=== PATIENT | male | born 1940 | race Caucasian/White ===

== ENCOUNTER 2016-10-30 10:36 | Emergency (ER) | payer OTHER ==
[~2016-10-30] VITALS: Ht 172.7 cm; Wt 77.9 kg
[~2016-10-30 10:36] MED LIST: AVDUNK; CEPH500C PO; CPR500 PO; FLM4 PO; LPTUNK; MULT-506 PO; OXYC-57 PO
[2016-10-30 10:43] VITALS: Ht 172.7 cm; Wt 77.9 kg
[2016-10-30 10:48] VITALS: O2SAT 99
[2016-10-30] MEDS ORDERED: SODIUM CHLORIDE 0.9% 250ML 250 ML IV STA (12:05)
[2016-10-30] MEDS ORDERED: SODIUM CHLORIDE 0.9% 1000ML 1,000 ML IV STA (12:05)
[2016-10-30 12:16] LABS: BASO % 0.6 %; BASO ABS # 0.04 K/uL (0-0.2); COMPLETE YES; EOS % 0.2 %; HEMATOCRIT 42.7 % (42-52); IG% 0.2 %; LYMPH % 29.9 %; LYMPH ABS # 1.86 K/uL (1.2-3.4); MEAN CELL VOLUME 89.3 fL (80-100); MEAN CORPUSCULAR HEMOGLOBIN 31.4 pg (25-34); MEAN CORPUSCULAR HGB CONC 35.1 g/dl (32-36); MEAN PLATELET VOLUME 9.8 fL (7.4-10.4); MONO % 25.4 %; NEUT % 43.7 %; PLATELET COUNT 218 K/uL (130-400); RED BLOOD COUNT 4.78 M/uL (4.7-6.1); WHITE BLOOD COUNT 6.22 K/uL (4.8-10.8)
[2016-10-30] MEDS ORDERED: ZOLP10TA PO (12:19)
[2016-10-30] MEDS ORDERED: CHOL1000 PO (12:19)
[2016-10-30] MEDS ORDERED: ROSU20TA PO (12:19)
--- NOTE | 2016-10-30 12:22 | EMERGENCY ROOM VISIT NOTE ---
History Report prepared by Umu: Elsie Orlando Under the Supervision of: Dr. Ciarra Chambers M.D. First contact with patient: 11:40 Chief Complaint: SYNCOPE Stated Complaint: SYNCOPE Nursing Triage Summary: pt was here with spouse in a1 was walking to bathroom and had syncopal episode. placed in bed and put in room ekg and iv established. pt reports he has been feeling ill since saturday and son asked himto come to hospital today with . pt reports cough and started having yellow flem today. feels achy all over and back pain History of Present Illness The patient is a 76 year old male who presents to the Emergency Room with complaints of an episode of near syncope that occurred this morning. The patient states that he has been ill over the past 3 days with body aches, fatigue, headache, chills, hot sweats, and a cough. He notes that he has been in bed since Saturday not feeling well. Today, he developed diarrhea. This morning he was in the emergency room accompanying his who was a patient and felt like he needed to find the restroom to have a bowel movement. A nurse was helping him with directions to the bathroom when he became disoriented and collapsed. He states that she caught him and he did not hit his head. He has never had similar symptoms in the past. The patient notes that he has been keeping up with fluids over the past few days. He had a flu shot this year. Denies bloody stool, urinary symptoms, focal weakness, or other complaints. He has had sick contacts with diarrhea recently. Source of History: patient Onset: this morning Position: other (global) Quality: other (near syncope) Timing: other (episode) Associated Symptoms: + chills, + cough, + diarrhea, + headache, No urinary symptoms, No weakness Note: Other symptoms: body aches, sweats Review of Systems See HPI for pertinent positives & negatives. A total of 10 systems reviewed and were otherwise negative. Past Medical & Surgical Medical Problems: (1) High cholesterol Family History Heart disease Social History Smoking Status: Never Smoker Marital Status: Housing Status: lives with significant other Occupation Status: retired Current/Historical Medications Scheduled Cholecalciferol (Vitamin D3), 1 TAB PO DAILY Multivitamin (Multivitamin), 1 TAB PO DAILY Oseltamivir Phosphate (Tamiflu), 5 ML PO BID Rosuvastatin Calcium (Crestor), 20 MG PO DAILY Scheduled PRN Zolpidem Tartrate (Ambien), 10 MG PO HS PRN for Sleep Allergies Coded Allergies: Macrolides (Verified Allergy, Intermediate, 10/30/16) Penicillins (Verified Allergy, Intermediate, 10/30/16) Erythromycin (Verified Allergy, Unknown, HIVES, 10/30/16) Uncoded Allergies: N (Allergy, Unknown, 10/15/02) PENICILLIN, ERYTHROMYCIN (RASH) (Allergy, Unknown, 10/15/02) Physical Exam Vital Signs Date Time Temp Pulse Resp B/P Pulse Ox O2 Delivery O2 Flow Rate FiO2 10/30/16 15:18 37.3 71 18 100/64 97 10/30/16 12:27 64 13 117/70 97 70 115/73 74 107/67 10/30/16 12:08 62 12 117/71 97 10/30/16 10:58 64 12 104/66 98 Room Air 10/30/16 10:50 64 10/30/16 10:48 99 Room Air 10/30/16 10:43 37.2 64 18 117/68 99 Room Air Physical Exam Vital signs reviewed. General: Elderly, generally well-appearing 76 year old male, in no significant distress. HEENT: No scleral icterus, PERRLA, neck supple. Atraumatic. Cardiovascular: Regular rate and rhythm, no extra sounds. Pulmonary: Clear to auscultation bilaterally, normal work of breathing. Abdomen: Soft, nontender, nondistended, positive bowel sounds. Musculoskeletal: Atraumatic, no peripheral edema. Neurologic: Patient awake alert and oriented x 3, full strength in all 4 extremities. Cranial nerves 2 through 12 grossly intact. Skin: Warm, dry, no rash Medical Decision & Procedures ER Provider Diagnostic Interpretation: Radiology results as stated below per my review and radiologist interpretation: HEAD CT NONCONTRAST CT DOSE: 537.48 mGy.cm HISTORY: AMS TECHNIQUE: Multiaxial CT images of the head were performed without the use of intravenous contrast. Comparison: None. Findings: The paranasal sinuses and mastoid air cells are clear. The calvarium and skull base are intact. The ventricles and sulci are within normal limits. There is no mass, hematoma, midline shift, or acute infarct. Impression: No acute intracranial abnormality. Electronically signed by: Case Thompson M.D. 10/30/2016 1:03 PM Dictated Date/Time: 10/30/2016 12:58 PM CHEST ONE VIEW PORTABLE CLINICAL HISTORY: Altered mental status. Weakness. Cough. COMPARISON STUDY: No previous studies for comparison. FINDINGS: Lung volumes are at the lower limits of normal. Linear left basilar opacity is suggestive of atelectasis. A 1 cm nodular density projects over the right lower lung. This is likely calcified. Cardiac size is normal. Mediastinal contours are normal. There is no evidence of pulmonary edema. IMPRESSION: 1. No acute findings. 2. Linear left lung opacities which favor atelectasis. 3. 1 cm right lower lung nodule which is likely calcified. Electronically signed by: Jose Miguel Gardner M.D. 10/30/2016 12:29 PM Dictated Date/Time: 10/30/2016 12:28 PM Laboratory Results 10/30/16 10:38 Red Blood Count 4.78, Mean Corpuscular Volume 89.3, Mean Corpuscular Hemoglobin 31.4, Mean Corpuscular Hemoglobin Concent 35.1, Mean Platelet Volume 9.8, Neutrophils (%) (Auto) 43.7, Lymphocytes (%) (Auto) 29.9, Monocytes (%) (Auto) 25.4, Eosinophils (%) (Auto) 0.2, Basophils (%) (Auto) 0.6, Neutrophils # (Auto ) 2.72, Lymphocytes # (Auto) 1.86, Monocytes # (Auto) 1.58, Eosinophils # (Auto ) 0.01, Basophils # (Auto) 0.04 10/30/16 10:38 Test 10/30/16 10:38 10/30/16 10:40 10/30/16 12:15 White Blood Count 6.22 K/uL (4.8-10.8) Red Blood Count 4.78 M/uL (4.7-6.1) Hemoglobin 15.0 g/dL (14.0-18.0) Hematocrit 42.7 % (42-52) Mean Corpuscular Volume 89.3 fL (80-100) Mean Corpuscular Hemoglobin 31.4 pg (25-34) Mean Corpuscular Hemoglobin Concent 35.1 g/dl (32-36) Platelet Count 218 K/uL (130-400) Mean Platelet Volume 9.8 fL (7.4-10.4) Neutrophils (%) (Auto) 43.7 % Lymphocytes (%) (Auto) 29.9 % Monocytes (%) (Auto) 25.4 % Eosinophils (%) (Auto) 0.2 % Basophils (%) (Auto) 0.6 % Neutrophils # (Auto) 2.72 K/uL (1.4-6.5) Lymphocytes # (Auto) 1.86 K/uL (1.2-3.4) Monocytes # (Auto) 1.58 K/uL (0.11-0.59) Eosinophils # (Auto) 0.01 K/uL (0-0.5) Basophils # (Auto) 0.04 K/uL (0-0.2) RDW Standard Deviation 40.2 fL (36.4-46.3) RDW Coefficient of Variation 12.4 % (11.5-14.5) Immature Granulocyte % (Auto) 0.2 % Immature Granulocyte # (Auto) 0.01 K/uL (0.00-0.02) Anion Gap 9.0 mmol/L (3-11) Est Creatinine Clear Calc Drug Dose 32.0 ml/min Estimated GFR () 38.8 Estimated GFR (Non- 33.5 BUN/Creatinine Ratio 10.7 (10-20) Calcium Level 8.9 mg/dl (8.5-10.1) Magnesium Level 2.2 mg/dl (1.8-2.4) Total Bilirubin 0.5 mg/dl (0.2-1) Direct Bilirubin 0.1 mg/dl (0-0.2) Aspartate Amino Transf (AST/SGOT) 30 U/L (15-37) Alanine Aminotransferase (ALT/SGPT) 23 U/L (12-78) Alkaline Phosphatase 59 U/L (45-117) Total Creatine Kinase 512 U/L (39-308) Creatine Kinase MB 0.5 ng/ml (0.5-3.6) Creatine Kinase MB Ratio 0.1 (0-3.0) Total Protein 7.0 gm/dl (6.4-8.2) Albumin 3.9 gm/dl (3.4-5.0) Lipase 225 U/L (73-393) Influenza Type A Antigen POS for Influ A (NEG) Influenza Type B Antigen Neg for Influ B (NEG) Bedside Troponin I 0.000 ng/ml (0-0.045) Laboratory results per my review. Medications Administered Medications (Trade) Dose Ordered Sig/Rosa Route Start Time Stop Time Status Last Admin Dose Admin Sodium Chloride 250 ml @ 999 mls/hr Q16M STAT IV 10/30/16 12:05 10/30/16 12:20 DC 10/30/16 12:26 999 MLS/HR Sodium Chloride (Nss 1000ml) 1,000 ml @ 125 mls/hr Q8H STAT IV 10/30/16 12:05 10/30/16 17:12 DC 10/30/16 12:05 125 MLS/HR ECG Indication: other (near-syncope) Rate (beats per minute): 62 Rhythm: normal sinus Findings: no acute ischemic change, no ectopy ED Course 1200: The patient was evaluated in room C5. A complete history and physical examination was performed. 1205: Ordered NSS 1000 ml @ 125 mls/hr IV, NSS 250 ml @ 999 mls/hr IV. 1500: Upon reevaluation, the patient was hemodynamically stable. I discussed findings with the patient. He verbalized agreement of the treatment plan. The patient was discharged home. Medical Decision Differential diagnosis: Etiologies such as metabolic, infection, hypo/hyperglycemia, electrolyte abnormalities, cardiac sources, intracerebral event, toxicologic, neurologic, as well as others were entertained. This patient was evaluated and appeared to be in no significant distress. IV access was obtained and laboratory work was drawn. Patient was placed on the cardiac monitor technician. Patient was hydrated with normal saline solution. Laboratory work is fairly unrevealing. CT scan of the head is negative for acute intracranial pathology. Chest x-ray is read as above. Patient did test positive for influenza A. Patient was given a prescription for Tamiflu 30 mg twice a day for 5 days. Patient was discharged follow-up with his primary care provider for reevaluation this week. He will return to the ER for worsening of symptoms or any medical concerns. Impression Primary Impression: Influenza A Additional Impressions: Near syncope Renal insufficiency Scribe Attestation The scribe's documentation has been prepared under my direction and personally reviewed by me in its entirety. I confirm that the note above accurately reflects all work, treatment, procedures, and medical decision making performed by me. Departure Information Dispostion Home / Self-Care Prescriptions Oseltamivir Phosphate (TAMIFLU) 6 Mg/Ml Lillian 5 ML PO BID for 5 Days, #50 ML Prov: Ciarra Chambers M.D. 10/30/16 Referrals Stacey Decker D.O. (PCP) Patient Instructions My [facility] Additional Instructions Diagnosis: Near-syncope, influenza A, renal insufficiency Tamiflu 30 milligrams twice daily for 5 days. Tylenol 650 mg every 6 hours as needed for pain or fever. Drink plenty of clear fluids. Avoid sick or very young or very old people until your symptoms have resolved. Please follow-up with your physician within the next several days for reevaluation and repeat renal function studies. Return to the ER for worsening of symptoms or any medical concerns. Problem Qualifiers
[2016-10-30 12:26] LABS: BUN/CREATININE RATIO 10.7 (10-20); CALCIUM 8.9 mg/dl (8.5-10.1); CREATININE 1.9 mg/dl (0.60-1.40); MAGNESIUM 2.2 mg/dl (1.8-2.4); POTASSIUM 3.5 mmol/L (3.5-5.1)
[2016-10-30 12:28] LABS: CKMB/CK RATIO 0.1 (0-3.0)
--- NOTE | 2016-10-30 12:31 | DIAGNOSTIC IMAGING REPORT ---
CHEST ONE VIEW PORTABLE CLINICAL HISTORY: Altered mental status. Weakness. Cough. COMPARISON STUDY: No previous studies for comparison. FINDINGS: Lung volumes are at the lower limits of normal. Linear left basilar opacity is suggestive of atelectasis. A 1 cm nodular density projects over the right lower lung. This is likely calcified. Cardiac size is normal. Mediastinal contours are normal. There is no evidence of pulmonary edema. IMPRESSION: 1. No acute findings. 2. Linear left lung opacities which favor atelectasis. 3. 1 cm right lower lung nodule which is likely calcified. Electronically signed by: Jose Miguel Gardner M.D. 10/30/2016 12:29 PM Dictated Date/Time: 10/30/2016 12:28 PM
--- NOTE | 2016-10-30 13:05 | DIAGNOSTIC IMAGING REPORT ---
HEAD CT NONCONTRAST CT DOSE: 537.48 mGy.cm HISTORY: AMS TECHNIQUE: Multiaxial CT images of the head were performed without the use of intravenous contrast. Comparison: None. Findings: The paranasal sinuses and mastoid air cells are clear. The calvarium and skull base are intact. The ventricles and sulci are within normal limits. There is no mass, hematoma, midline shift, or acute infarct. Impression: No acute intracranial abnormality. Electronically signed by: Case Thompson M.D. 10/30/2016 1:03 PM Dictated Date/Time: 10/30/2016 12:58 PM
[2016-10-30] MEDS ORDERED: OSEL12.5 PO (14:46)
[2016-10-30 15:18] VITALS: BP 100/64; PULSE 71; TEMP 37.3; O2SAT 97
== END 2016-10-30 15:19 | disposition home or self-care (01) ==
LOC: EDBD 10:36 → C.EDB 10:38 → C.EDC 15:19
DX: J10.1 Influenza due to other identified influenza virus with other respiratory manifestations (principal); R55 Syncope and collapse; N28.9 Disorder of kidney and ureter, unspecified; E78.00 Pure hypercholesterolemia, unspecified; Z79.899 Other long term (current) drug therapy